=== PATIENT | male | born 1940 | race Two or more races ===

== ENCOUNTER → 2017-08-08 10:15 | Outpatient (CLI) | payer OTHER | END | disposition home or self-care (01) | LOC: LAB 10:15 | DX: N30.00 Acute cystitis without hematuria (principal); R82.79 Other abnormal findings on microbiological examination of urine ==

== ENCOUNTER 2019-04-18 14:15 | Outpatient (CLI) | payer OTHER | END 2019-04-18 14:22 | disposition home or self-care (01) | LOC: RAD 14:15 | DX: N20.0 Calculus of kidney (principal) ==

== ENCOUNTER 2019-06-17 16:44 | Outpatient (CLI) | payer OTHER | END 2019-06-17 17:00 | disposition home or self-care (01) | LOC: RAD 16:44 | DX: R76.11 Nonspecific reaction to tuberculin skin test without active tuberculosis (principal) ==